=== PATIENT | female | born 1965 | race Caucasian/White ===

== ENCOUNTER 2021-04-14 03:32 | Outpatient (CLI) | payer OTHER, SELFPAY ==
[2021-04-14 13:56] LABS: ALT 58 U/L (14-59); AST 30 U/L (15-37); Albumin 4.1 g/dL (3.4-5.0); Alkaline Phosphatase 105 U/L (46-116); Bilirubin, Direct 0.1 mg/dL (0.0-0.2); Bilirubin, Total 0.3 mg/dL (0.2-1.0); Total Protein 7.4 g/dL (6.4-8.2)
== END 2021-04-14 03:33 | disposition home or self-care (01) ==
LOC: LBO 03:32
PROVIDERS: PCP Internal Medicine
DX: R10.9 Unspecified abdominal pain (principal)
CPT/HCPCS: 36415; 80076

== ENCOUNTER 2023-11-16 09:13 | Emergency (ER) | payer OTHER, SELFPAY ==
[2023-11-16 09:16] VITALS: BP 102/48; PULSE 77; RESP 16; TEMP 37.1; O2SAT 99
--- NOTE | 2023-11-16 09:49 | ED.GENADUL_ITS ---
Discharge Plan Disposition Patient Disposition: Home Condition: Good Discharge Details Clinical Impression: Eyelid abnormality, Eye irritation, Allergic reaction Primary Care Provider: Elias Yang ED Provider: Willa Gaytan Home Meds and New Rx's Prescriptions: Continued atorvastatin [Lipitor] 10 MG tablet 10 mg PO DAILY Discharge Instructions Instructions: General Allergic Reaction (ED) Additional Instructions: Your history and exam is most consistent with allergic reaction. As we discussed, this may be associated with mask use. You may use a hypoallergenic provided when you have to go back into the [facility]. Please also pay attention to other things to put in your eyes such as make-up. Please evaluate for expiration dates. You may want to keep notes of your reaction and what seems to be triggering them. You may use oral antihistamine such as Claritin or Marlene to help with symptomatic management. May also use Benadryl but as this is sedating, try to take this at night prior to bed. Please also try to prop yourself up more at night as this will help with some of the swelling that occurred in the evening. If you develop eye pain, purulent discharge, visual changes, fevers or other new/worsening symptom please seek care urgently once again. Otherwise, please follow-up with your primary care in 2 weeks. He may also follow-up with [facility], number listed below. Referrals: [facility] [Outside] Elias Yang [Primary Care Provider] - Discharge Data Discharge Date/Time-TO BE ENTERED AT DEPARTURE: 11/16/23 10:24 Medical Decision Making Patient is a pleasant 58 year female, accompanied by , with c/c of bilateral upper eyelid swelling, dry skin. She reports that she recently had to move a family member into [facility] home facility and has had to wear a mask covering her face. States after the first day, her eyes were uncomfortable. After the second day, she developed swelling of the lids and irritation. She does note that the eye itself does not seem to be affected as she is not having any purulent discharge, visual changes, eye pain. She has had some tearing of the eye but states that she has had increased tearing chronically. She does not work glasses or contacts. Does not see an eye doctor regularly. Denies any fevers or chills. Denies any sinus pain, swelling elsewhere, rashes, shortness of breath, wheezing. On exam, patient appears nontoxic. She does have some slight swelling to bilateral upper lids but this is not obstructing her vision or eye exam at all. Pupils are equal round and reactive. Conjunctiva is clear, no evidence of acute bacterial infection, eyes appear unaffected. Her history exam is most consistent with an allergic irritation. Given the location, unable to do any topical steroids. As this seems to be still localized and the source is likely already identified, I do not feel that any oral steroids is warranted at this time. Will complete with supportive care. Encouraged hydration. Encouraged antihistamine use. Advised that laying flat at night likely exacerbated her symptoms due to the dependent nature of her position and encouraged that she support her self upward slightly. Strict return precautions were discussed. I also advised that she keep track of her symptoms to continue to monitor in the event that it is not in fact the mask that was causing this. I did supply her with some hypoallergenic mask that she may continue to advance visit her family. All of her questions and concerns were addressed and she is in agreement this plan. HPI General Date/Time Provider Initiated Documentation: 11/16/23 09:48 . Limitations to Documentation: no limitations . Information obtained by: patient and family () . History of Present Illness 58 year old F presents to the emergency department with the chief complaint of Bilateral eye irritation and lid swelling, described as mild, Quality is described as aching, and is localized to the eyes (Bilateral upper eyelids). Patient reports no radiation. Patient started experiencing this day(s) and it has been constant. No relieving factors improve symptom(s), Other factors that worsen symptoms (mask) . Patient notes no other symptoms.. Patient did receive the following treatments prior to arrival, none Related Data Home Medications Medication Instructions Recorded Confirmed atorvastatin 10 mg tablet (Lipitor) 10 mg PO DAILY 03/16/16 11/16/23 Allergies Allergy/AdvReac Type Severity Reaction Status Date / Time No Known Allergies Allergy Unverified 11/16/23 09:21 General Stated Complaint: EyeProblem FLOR: 4 Review of Systems Constitutional Constitutional: Reports as per HPI, Denies chills, Denies fever(s) and Denies headache(s) Eyes Eyes: Reports as per HPI ENT Ears, Nose, Mouth, and Throat: Reports as per HPI and Denies headache(s) Cardiovascular Cardiovascular: Denies chest pain Respiratory Respiratory: Reports as per HPI Integumentary/Breasts Skin/Breast: Reports as per HPI Neurologic Neurologic: Denies headache(s) PFSH All Active Problems (Updated 11/16/23 @ 10:12 by TANYA Garcia) Allergic reaction (Acute) Eye irritation (Acute) Eyelid abnormality (Acute) Endocervical polyp (Acute) Social History Smoking/Tobacco Use Status: Never Smoking risk assessment performed?: Yes Alcohol Intake: current Alcohol Intake frequency: a few times a month Drug use: Never Substance use type: former substance user Housing: house Do you feel safe at home: Yes Do you feel safe in your relationship?: Yes History History 2 Para 2 Hx # Term Pregnancies 2 Multiple births Hx # Pregnancies Ectopic pregnancies AB induced Hx Number of Living Children 2 AB spontaneous Exam Const General: cooperative, healthy appearing, comfortable, no acute distress and well developed Nutritional Appearance: average body habitus and well nourished Orientation: alert, awake and oriented x3 HENMT Head: normal to inspection Ears: hearing grossly normal bilaterally Face and sinus: normal facial exam, sinuses nontender and face symmetric Mouth: oral mucosae normal, lip normal, tongue normal, oropharynx normal, moist mucous membranes, no drooling and no muffled voice Teeth and gingiva: dentition normal Throat: posterior oropharynx normal Eyes Visual Zavala: normal visual zavala by confrontation Alignment and Position: alignment normal and position normal Periorbital: periorbital findings abnormal bilaterally (upper lids slightly swollen, appear dry) Conjunctivae: conjunctivae normal Sclera: sclerae normal Cornea: corneas normal Pupils: PERRL, normal by confrontation and accommodation normal EOM: EOM intact bilaterally Neck Neck: normal visual inspection, full ROM, no lymphadenopathy, no meningeal signs and trachea midline Resp Effort & Inspection: normal respiratory effort, able to speak in complete sentences, no respiratory distress and no use of accessory muscles Auscultation: clear to auscultation bilaterally Cardio Rate: regular rate Rhythm: regular rhythm Heart Sounds: S1 normal and S2 normal Skin General skin exam: no rashes or lesions noted Neuro General: patient alert and patient awake Cognition: normal cognition Speech: speech normal Gait: normal gait Course Vital Signs Vital signs: Vital Signs Temperature 37.1 C 11/16/23 09:16 Pulse 77 11/16/23 09:16 Respiratory Rate 16 11/16/23 09:16 Blood Pressure 102/48 L 11/16/23 09:16 Pulse Oximetry 99 11/16/23 09:16 Temperature 37.1 C 11/16/23 09:16 Temperature Source Temporal Artery Scan 11/16/23 09:16 Pulse 77 11/16/23 09:16 Respiratory Rate 16 11/16/23 09:16 Respiratory Effort Normal, Non-Labored 11/16/23 09:21 Blood Pressure 102/48 L 11/16/23 09:16 Blood Pressure Position Sitting 11/16/23 09:16 Pulse Oximetry 99 11/16/23 09:16 Oxygen Delivery Method Room Air 11/16/23 09:16 Oxygen Flow Rate 0 11/16/23 09:16 PAWSS Have you Been Recently Intoxicated or Drunk Within the Last 30 days?: No Have you Ever Experienced Previous Episodes of Alcohol Withdrawal?: No Have you ever Experienced Withdrawal Seizures?: No Have you ever Experienced Delirium Tremens(DT)s?: No Have you ever undergone Alcohol Rehabilitation Treatment (i.e, inpt ot outpatient treatment programs)?: No Have you ever Experienced Blackouts?: No Have you ever Combined Alcohol with other Downers within the last 90 days?: No Have you ever Combined Alcohol with any other Substance of Abuse during the last 90 days?: No Positive Blood Alcohol level on Presentation? [PCS.BAL]: No Evidence of Increased Autonomic Activity (i.e. HR>120, tremor, sweating, agitation, nausea)?: No Result: 0
== END 2023-11-16 10:24 | disposition home or self-care (01) ==
PROVIDERS: Emergency Provider Physician Assistant; PCP Internal Medicine
DX: H57.89 Other specified disorders of eye and adnexa (principal); T78.49XA Other allergy, initial encounter; X58.XXXA Exposure to other specified factors, initial encounter
CPT/HCPCS: 99282

== ENCOUNTER 2024-03-28 15:46 | Outpatient (REF) | payer OTHER, SELFPAY ==
--- NOTE | 2024-03-28 14:30 | ENDO_PTH ---
PATIENT: Tiffany Rodriguez LOC: [facility] U#:[id number] AGE/SX: 58/F ROOM: RE03/28/[address]: Kristi Bills DO : 1965 BED: DIS: 03/28/2024 SPEC #: [id number] RECD: 03/28/24 18:07 STATUS: CHASE RE #: [id number] [place]: 03/28/24 14:[address]: Kristi Bills DEPT: Surgical Specimen RECD BY: Corrina White ENTERED: 03/28/24 18:07 SP TYPE: Endo OTHR DR: Elias Yang Tissues: 1 - ENDOCERVICAL BX/CURRETTE Procedures: GROSS AND MICRO LEVEL 4 Comments: [id number]
== END 2024-03-28 15:47 | disposition home or self-care (01) ==
LOC: LBN 15:46
PROVIDERS: PCP Internal Medicine; Visit Provider Obstetrics & Gynecology
DX: N84.1 Polyp of cervix uteri (principal)
CPT/HCPCS: 88305

== ENCOUNTER 2024-08-10 16:50 | Outpatient (REF) | payer OTHER, SELFPAY ==
--- NOTE | 2024-08-10 16:00 | PAPFT_PTH ---
PATIENT: Tiffany Rodriguez LOC: N U#:[id number] AGE/SX: 59/F ROOM: RE08/10/[address]: Kristi Bills DO : 1965 BED: DIS: 08/10/2024 SPEC #: [id number] RECD: 08/10/24 17:58 STATUS: ABDIELJose REQ #: [id number] [place]: 08/10/24 16:[address]: Kristi Bills DEPT: [facility] Cytology RECD BY: Corrina White ENTERED: 08/10/24 17:59 SP TYPE: PAPFT OTHR DR: Elias Yang Tissues: 1 - CX/ENDOCX FOR PAP SMEARS Procedures: PAP THIN PREP/[facility] Screening HPV DNA PROBE Comments: [id number] (HPV 16 & 18/45)
== END 2024-08-10 16:51 | disposition home or self-care (01) ==
LOC: LBN 16:50
PROVIDERS: PCP Internal Medicine; Visit Provider Obstetrics & Gynecology
DX: Z11.51 Encounter for screening for human papillomavirus (HPV) (principal); Z01.419 Encounter for gynecological examination (general) (routine) without abnormal findings
CPT/HCPCS: 88142; 87624